=== PATIENT | female | born 1965 | race Caucasian/White ===

== ENCOUNTER 2016-09-19 08:04 | Emergency (ER) | payer OTHER ==
[~2016-09-19] VITALS: Ht 170.2 cm; Wt 125.0 kg
[~2016-09-19 08:04] MED LIST: ASPIR 8181 M1 PO; HYDROCORTISONE60 GM TP; LIDEX 0.05% OIN15 GM TP; MECLIZINE HCL25 MG PO; PROZAC20 MG PO
[2016-09-19] MEDS ORDERED: MOTRIN800 MG PO (09:49)
[2016-09-19 10:16] VITALS: BP 116/83
== END 2016-09-19 10:20 | disposition home or self-care (01) ==
LOC: EME 08:04
DX: S93.402A Sprain of unspecified ligament of left ankle, initial encounter (principal); W10.9XXA Fall (on) (from) unspecified stairs and steps, initial encounter
CPT/HCPCS: 73610; 99281; 99284

== ENCOUNTER 2017-09-03 17:49 | Emergency (ER) | payer BC, OTHER ==
[~2017-09-03] VITALS: Ht 170.2 cm; Wt 129.6 kg
[~2017-09-03 17:49] MED LIST changes: +MOTRIN800 MG PO
[2017-09-03] MEDS ORDERED: NORCO 5/3251 TABLET PO (19:10)
[2017-09-03] MEDS ORDERED: NAPROSYN500 MG PO (19:10)
[2017-09-03 19:21] VITALS: BP 118/60
== END 2017-09-03 19:22 | disposition home or self-care (01) ==
LOC: EME 17:49
DX: M25.561 Pain in right knee (principal); F41.9 Anxiety disorder, unspecified; Z88.5 Allergy status to narcotic agent; Z88.6 Allergy status to analgesic agent; Z87.891 Personal history of nicotine dependence
CPT/HCPCS: 73564; 99281; 99284; J1885